=== PATIENT | male | born 1940 | race Caucasian/White ===

== ENCOUNTER 2016-08-18 06:11 | Inpatient (IN) | payer MEDICARE, OTHER ==
[2016-08-11 10:16] LABS: BASOPHILS 0.6 %; BASOPHILS ABSOLUTE 0.03 10/3/uL (0.0-0.16); EOSINOPHILS 3.3 %; EOSINOPHILS ABSOLUTE 0.16 10/3/uL (0.0-0.53); HEMATOCRIT 42.5 % (40.0-51.0); HEMOGLOBIN 14.4 g/dL (13.6-17.8); IMMATURE GRANULOCYTES 0.2 %; IMMATURE GRANULOCYTES ABSOLUTE 0.01 10/3/uL (0.0-0.11); LYMPHOCYTES 26.2 %; LYMPHOCYTES ABSOLUTE 1.26 10/3/uL (0.67-4.30); MEAN CORPUS HGB CONC 33.9 g/dL (32.0-36.0); MEAN CORPUSCULAR HEMOGLOB 31.1 pg (26.0-34.0); MEAN CORPUSCULAR VOLUME 91.8 fL (80-100); MEAN PLATELET VOLUME 9.5 fL (9.2-13.0); MONOCYTES 8.1 %; MONOCYTES ABSOLUTE 0.39 10/3/uL (0.21-1.20); NEUTROPHILS 61.6 %; NEUTROPHILS ABSOLUTE 2.96 10/3/uL (2.02-8.40); PLATELET COUNT 213 10/3/uL (150-400); RBC DISTRIBUTION WIDTH 13.5 % (12.0-16.0); RED CELL COUNT 4.63 10/6/uL (4.7-6.1)
[2016-08-11 10:18] LABS: MANUAL DIFF NO %; WHITE BLOOD CELLS 4.8 10/3/uL (4.5-10.5)
[2016-08-11 10:27] LABS: BUN (BLOOD UREA NITROGEN) 21 MG/DL (6-23); CALCIUM, SERUM 8.9 MG/DL (8.5-10.4); CHLORIDE, SERUM 106 MMOL/L (96-112); CO2 (CARBON DIOXIDE) 27 MMOL/L (24-34); CREATININE 1.25 MG/DL (0.70-1.30); GFR AFRICAN AMERICAN 65 ML/MIN (>=60); GFR NON AFRICAN AMERICAN 56 ML/MIN (>=60); GLUCOSE, SERUM 86 MG/DL (60-99); INTERNATIONAL NORMAL RATI 2.8 UNITS (-); PARTIAL THROMBO TIME 42.5 SEC (22.5-37.2); POTASSIUM, SERUM 4.1 MMOL/L (3.5-5.3); PROTIME (NOT ORD) 29.3 SEC (12.0-14.5); SODIUM, SERUM 140 MMOL/L (135-148)
[2016-08-11 11:16] LABS: ASCORBIC ACID (UR NOT ORDER) NEG (NEG); BILIRUBIN, URINE NEGATIVE (NEG); KETONE, URINE NEGATIVE (NEG); LEUKOCYTE ESTERASE(NOT OR NEG (NEG); WBC (NOT ORDERED) (RFLEX) 2 (0-5)
--- NOTE | ~2016-08-18 | HP ---
History And Physical [address] [address] NAME: VETO WALLS : 40 STATUS : DIS IN PAT#: [id number] AGE: 75 ADM/REG DATE : 08/18/16 MR#: [id number] REPORT SERV DATE: 08/20/16 DICTATED BY: ARI RUFFIN DATE: 08/17/16 REPORT STATUS : Draft TRANSCRIBED BY: MODL DATE: 08/17/16 DATE OF ADMISSION: 08/18/2016 CHIEF COMPLAINT: Adenocarcinoma of the prostate, clinical stage T1c, Brooklyn score is 3+4=7, maximum PSA of 16. HISTORY OF PRESENT ILLNESS: Mr. Walls is a 75-year-old male who had a steadily rising PSA. He had several negative biopsies. He had a previous GreenLight PVP of his prostate. An MRI revealed two lesions and he underwent ultrasound and biopsy of his prostate, which confirmed a Zeyad score 7 and a Brooklyn score 6. Both biopsies were from the right side. Different treatment options regarding management of prostate cancer were proposed to the patient. He has decided to proceed with laparoscopic robot-assisted radical prostatectomy. He will be admitted after that procedure. Since having his GreenLight, the patient denies any trouble with urination. He does have erectile dysfunction. PAST MEDICAL HISTORY: Hypertension and atrial fibrillation. PAST SURGICAL HISTORY: He had a GreenLight PVP in 04/2012. FAMILY HISTORY: Negative for prostate cancer. SOCIAL HISTORY: The patient reports one alcoholic drink per day. He has a 62-svfl-mcud history but quit in 1993. PRESENT MEDICATIONS: Digoxin, diltiazem, lisinopril, Viagra, and Xarelto, which has been on hold. REVIEW OF SYSTEMS: He wears glasses, has ringing in his ear, and erectile dysfunction. PHYSICAL EXAMINATION: GENERAL: Shows a well-developed, well-nourished white male, in no acute distress. He is awake, alert, and oriented x3. HEENT: His sclerae are anicteric. NECK: Supple. LUNGS: Clear. HEART: Regular rate and rhythm. ABDOMEN: Soft, nontender. No palpable abdominal masses. No hepatosplenomegaly. : Penis normal. Testes are descended, nontender. No testicular masses. No scrotal swelling. No inguinal hernia. His prostate is large but smooth. No nodules. EXTREMITIES: Lower extremities show no deformities. IMPRESSION: Adenocarcinoma of the prostate, clinical stage T1c, with Zeyad score 3+4=7 from the right apex. History And Physical [address] [address] NAME: VETO WALLS : 40 STATUS : DIS IN PAT#: [id number] AGE: 75 ADM/REG DATE : 08/18/16 MR#: [id number] REPORT SERV DATE: 08/20/16 DICTATED BY: ARI RUFFIN DATE: 08/17/16 REPORT STATUS : Draft TRANSCRIBED BY: IZAIAH DATE: 08/17/16 PLAN: Laparoscopic robot-assisted radical prostatectomy. Potential complications of bleeding, infection, urinary incontinence, bladder neck obstruction, loss of ejaculate, worsened erectile dysfunction, and injury to adjacent structures such as bladder, ureters, rectum, colon, intestine, nerves, as well as bowel obstruction complications were all explained to the patient. He both manually and verbally consents to proceed. PF/IZAIAH Ari Ruffin M.D. / [id number] CC: Ari Ruffin M.D.
--- NOTE | ~2016-08-18 | OP ---
Record Of Operation [facility] [address] [place]. [address] NAME: VETO MARTINEZ : 40 STATUS : ADM IN PAT#: [id number] AGE: 75 ADM/REG DATE : 08/18/16 MR#: [id number] REPORT SERV DATE: 08/19/16 DICTATED BY: ARI RUFFIN DATE: 08/18/16 REPORT STATUS : Draft TRANSCRIBED BY: MODL DATE: 08/18/16 DATE OF PROCEDURE: 08/18/2016 PREOPERATIVE DIAGNOSIS: Adenocarcinoma of the prostate clinical stage T1c, Zeyad score 3+4=7, maximum PSA 16. POSTOPERATIVE DIAGNOSIS: Adenocarcinoma of the prostate clinical stage T1c, Zeyad score 3+4=7, maximum PSA 16. PROCEDURES: Laparoscopic robot-assisted radical prostatectomy. SURGEON: Ari Ruffin M.D. PRESS SETTER: Murali High. ANESTHESIA: General. BLOOD LOSS: General and local blood loss is estimated at 100 mL. FLUID REPLACEMENT: 3 L of crystalloid. DRAINS: 15 mm Edvin drain in the prevesical space and an 18-Kittitian Ruffin catheter per urethra. INDICATIONS: A 75-year-old male with a prior GreenLight photo laser vaporization of the prostate and a MRI-guided prostate cancer diagnosis. TECHNIQUE: The patient was identified, brought to the operating room after general anesthetic agent by the Anesthesia Service and intubated. He was positioned in dorsal lithotomy position. He was appropriately padded and secured to the table. The abdomen was previously clipped and the entire abdomen, penis, groin, scrotum, and perineum were prepped and draped in the usual sterile fashion. A 16-Kittitian Ruffin catheter was passed in the bladder and left for drainage. Laparoscopic port sites were first infiltrated with 0.5% Marcaine plain. A 3 cm skin incision was made above the umbilicus, carried down through subcutaneous tissue to the rectus fascia. Holding sutures were placed in the rectus fascia and a transverse incision made in the fascia with an 11-blade scalpel. The underlying peritoneum was identified and opened sharply. A balloon trocar was placed in the peritoneal space. The patient was placed in steep Trendelenburg. A pneumoperitoneum was created by insufflating carbon dioxide. The abdominal pressure rate 15 mmHg and held there through the entire case until otherwise specified. Three robot arm ports and two bilingual administrative assistant ports were placed under direct laparoscopic vision. Once the ports were in position, the da Jose A robot was brought to the table and mated to the ports. I took down some adhesions between the sigmoid colon and left pelvic sidewall. I then opened the cul-de-sac and exposed the seminal structures. The left and right vasa deferentia were isolated, clipped proximally, transected distally. The left and right Record Of Operation [place] [address] [facility] [place]. [address] NAME: VETO MARTIENZ : 40 STATUS : ADM IN PAT#: [id number] AGE: 75 ADM/REG DATE : 08/18/16 MR#: [id number] REPORT SERV DATE: 08/19/16 DICTATED BY: ARI RUFFIN DATE: 08/18/16 REPORT STATUS : Draft TRANSCRIBED BY: IZAIAH DATE: 08/18/16 seminal vesicles were dissected out clipped laterally. Denonvilliers fascia was opened sharply and the rectum swept off the undersurface of the prostate with sharp and blunt dissection all the way out to the apex. I divided median umbilical ligaments and urachus and swept the bladder off the anterior abdominal wall and symphysis pubis. The peritoneum was opened just lateral to the median umbilical ligaments on each side all the way to the vasa deferentia bilaterally. The fat overlying prostate gland was taken off with sharp dissection. The endopelvic fascia was pierced sharply at the prostatovesical junction and it is opened distally all the way out to the puboprostatic ligaments bilaterally. The patient has bilateral accessory pudendal arteries. These were spared. The dorsal venous complex was isolated and secured with laparoscopic NICHO stapling device. I then mobilized the neurovascular bundles off the left and right side of the prostate starting at the apex and working back to the posterior pedicles bilaterally. On the left side, I felt like I got in the wrong plane and later corrected this plane. I switched to 30-degree down lens and developed a plane between the bladder neck of the prostate. I opened the anterior bladder neck and elevated the Ruffin catheter. The patient had very large defect from his prior photo laser vaporization prostate. I identified the ureteral orifices and carefully came through the posterior bladder neck sharply. The lap of the bladder taken off the prostate with sharp dissection. The previously dissected out seminal structures were identified. The posterior pedicles were secured with locking clips and then divided. I then corrected the plane on the left side and dissected all the way out to the apex of the prostate. The last attachments of striated sphincter taken off the prostate sharply. The urethra was divided at the prostatovesical junction and posterior striated sphincter was then divided. The specimen was inspected, appeared intact, placed in the specimen retrieval bag, held for later retrieval. I lowered the abdominal pressure down to 7 mmHg and irrigated the pelvis copiously. I oversewed the left neurovascular bundle with 3-0 [id number] PDS. Fastidious hemostasis was achieved. I reconstructed the bladder neck with horizontal mattress sutures of 3-0 PDS at the 3 o'clock and 9 o'clock position. I then did a posterior reconstruction in two layers with 3-0 V-Loc. Then a modified van Velthoven vesicourethral anastomosis with 3-0 V- Loc. The anastomosis was completed and I inserted a new 18-Kittitian Ruffin catheter. I filled the bladder with 240 mL of saline. It held, but without extravasation. I then filled 15 mL of sterile water in catheter balloon. The bladder was drained. The instrument was taken out of the robot arm port and 15 mm Edvin drain was placed through that port and left in the prevesical space. The drain was later sutured to the skin. I undocked the da Jose A robot. I transferred the string in specimen bag out through the umbilical port. The bilingual administrative assistant 12 mm port was removed and the fascia there was closed with Nick-Prieto endoscopic closure system. I removed all other ports under low pressure. No port site bleeding was noted. I brought the string of the specimen bag out through the umbilical port. I extended my Record Of Operation [address] [place]. [address] NAME: VETO MARTINEZ : 40 STATUS : ADM IN PAT#: [id number] AGE: 75 ADM/REG DATE : 08/18/16 MR#: [id number] REPORT SERV DATE: 08/19/16 DICTATED BY: ARI RUFFIN DATE: 08/18/16 REPORT STATUS : Draft TRANSCRIBED BY: MODL DATE: 08/18/16 transverse incision by 2 cm in each direction. I delivered the specimen out of the wound. I then closed the fascia with [id number] 0 Vicryl suture. The subcutaneous tissue of all ports was irrigated copiously and closed with 3-0 Vicryl. The skin of all ports closed with 4-0 Monocryl. Dressings were applied. The catheter was secured. The patient was awakened and taken to the recovery unit in a stable and satisfactory condition. PF/MODL Ari Ruffin M.D. / [id number] CC: Ari Ruffin M.D.
[~2016-08-18 06:11] MED LIST: ALEVE220 MG PO; CARTIA XT180 MG/24 PO; LAN125 PO; LISINOPRIL40 MG PO; XARELTO20 MG PO
[2016-08-19 05:01] LABS: HEMOGLOBIN 12.5 g/dL (13.6-17.8)
[2016-08-19 05:03] LABS: HEMATOCRIT 36.1 % (40.0-51.0)
[2016-08-19 05:17] LABS: CALCIUM, SERUM 8.2 MG/DL (8.5-10.4); CHLORIDE, SERUM 106 MMOL/L (96-112); CO2 (CARBON DIOXIDE) 25 MMOL/L (24-34); CREATININE 1.06 MG/DL (0.70-1.30); GFR AFRICAN AMERICAN 79 ML/MIN (>=60); GFR NON AFRICAN AMERICAN 68 ML/MIN (>=60); POTASSIUM, SERUM 4.6 MMOL/L (3.5-5.3); SODIUM, SERUM 138 MMOL/L (135-148)
[2016-08-19 05:18] LABS: BUN (BLOOD UREA NITROGEN) 10 MG/DL (6-23); GLUCOSE, SERUM 143 MG/DL (60-99)
[2016-08-19] MEDS ORDERED: NORCO1 TA1 PO (09:29)
== END 2016-08-19 13:23 | disposition home or self-care (01) | DRG 708 ==
LOC: SDC/OF 06:11 → PACU 12:01 → 4SO 15:33
PROVIDERS: Urology
PROC: 0VT34ZZ Resection of Bilateral Seminal Vesicles, Percutaneous Endoscopic Approach (ICD-10-PCS; 2016-08-18)
PROC: 0VTQ4ZZ Resection of Bilateral Vas Deferens, Percutaneous Endoscopic Approach (ICD-10-PCS; 2016-08-18)
PROC: 8E0W4CZ Robotic Assisted Procedure of Trunk Region, Percutaneous Endoscopic Approach (ICD-10-PCS; 2016-08-18)
PROC: 0VT04ZZ Resection of Prostate, Percutaneous Endoscopic Approach (ICD-10-PCS; principal; 2016-08-18 07:30)
DX: C61 Malignant neoplasm of prostate (principal); I48.2 Chronic atrial fibrillation; I10 Essential (primary) hypertension; Z79.01 Long term (current) use of anticoagulants; N52.9 Male erectile dysfunction, unspecified; Z87.891 Personal history of nicotine dependence
CPT/HCPCS: 80048; 81001; 82570; 83735; 85014; 85018; 85025; 85610; 85730; 88309; 93005; A9270-GY; J0360; J0690; J1170; J2405; J2710; J3010